=== PATIENT | male | born 1955 | race Two or more races ===

== ENCOUNTER 2023-07-14 17:30 | Inpatient (IN) | payer OTHER ==
[~2023-07-14] VITALS: Ht 188 cm; Wt 113.6 kg
[2023-07-14 17:40] VITALS: PULSE 152; RESP 34; O2SAT 95
[2023-07-14] MEDS ORDERED: SODIUM CHLORIDE 0.9% 1,000 ML IV ONE ×2 (18:15→21:30)
[2023-07-14 18:55] LABS: Basophils # (auto) 0 10 ^3/uL (0-0.2); Basophils % (auto) 0.2 % (0.0-2.0); Eosinophils # (auto) 0 10 ^3/uL (0-0.8); Hematocrit 49.7 % (41.0-53.0); Hemoglobin 15.9 g/dL (13.5-17.5); Lymphocytes # (auto) 0.5 10 ^3/uL (0.4-5.4); Lymphocytes % (auto) 3.2 % (10.0-50.0); Mean Corpuscular Hemoglobin 33.6 pg (28.0-32.0); Mean Corpuscular Volume 104.9 fL (80.0-100.0); Monocytes # (auto) 0.6 10 ^3/uL (0-1.3); Monocytes % (auto) 3.5 % (0.0-12.0); Neutrophils # (auto) 14.8 10 ^3/uL (1.6-8.6); Neutrophils % (auto) 93.1 % (37.0-80.0); Nucleated Red Blood Cells % 0.1 %; Red Blood Cells 4.74 10^6/uL (4.5-5.90); Red Cell Distribution Width 16.8 % (11.8-14.3); White Blood Cell 15.9 10^3/uL (4.4-10.8)
[2023-07-14 19:00] LABS: Alanine Aminotransferase 23 U/L (7-40); Albumin 3.6 g/dL (3.2-4.8); Alkaline Phosphatase 77 U/L (46-116); Anion Gap 16 (5-15); Aspartate Aminotransferase 25 U/L (13-40); BUN/Creatinine Ratio 23.7 (10.0-20.0); Blood Urea Nitrogen 31 mg/dL (9-23); Calcium 8.9 mg/dL (8.7-10.4); Carbon Dioxide 17 mmol/L (20-30); Chloride 107 mmol/L (98-107); Glucose 104 mg/dL (74-106); Magnesium 2.2 mg/dL (1.6-2.6); Potassium 5.1 mmol/L (3.5-5.1); Sodium 140 mmol/L (136-145); Total Protein 6.8 g/dL (5.7-8.2)
[2023-07-14 19:01] LABS: Bilirubin, Total 5.7 mg/dL (0.2-1.0)
[2023-07-14] MEDS ORDERED: FUROSEMIDE 40 MG/4 ML VIAL IV ONE (19:15)
[2023-07-14 19:22] LABS: Lactic Acid w/Reflex 6.4 mmol/L (0.4-2.0)
[2023-07-14 19:38] LABS: INR 1.36 (0.9-1.15); Partial Thromboplastin Time 28.5 SEC (24.5-34.5)
[2023-07-14 19:46] VITALS: PULSE 142; RESP 29; O2SAT 93
[2023-07-14] MEDS ORDERED: VANCOMYCIN 1GM/250ML 250 ML IV ONE (20:15)
[2023-07-14] MEDS ORDERED: cefTRIAXone 1GM/50ML D5W 50 ML IV ONE (20:15)
[2023-07-14] MEDS ORDERED: dilTIAZem 25 MG/5 ML VIAL IV ONE (20:30)
[2023-07-14 21:18] LABS: COVID19 ANTIGEN SOFIA FIA NEGATIVE (NEGATIVE)
[2023-07-14] MEDS ORDERED: DEXTROSE (50%) 50ML SYRG IV PRN (22:00)
[2023-07-14] MEDS ORDERED: FUROSEMIDE 20 MG/2 ML VIAL IV ONE (22:00)
[2023-07-14] MEDS ORDERED: NITROGLYCERIN 0.4 MG SL TAB SL PRN (22:00)
[2023-07-14] MEDS ORDERED: ACETAMINOPHEN 325 MG TAB PO PRN (22:00)
[2023-07-14] MEDS ORDERED: HYDROcodone-ACET 5/325MG TAB PO PRN (22:00)
[2023-07-14] MEDS ORDERED: MORPHINE SULFATE INJ 2 MG/ml SYRG IV PRN (22:00)
[2023-07-14] MEDS ORDERED: ONDANSETRON HCL 4 MG/2 ML VIAL IV PRN (22:00)
[2023-07-14] MEDS ORDERED: DOCUSATE SOD 100 MG CAP PO PRN (22:00)
[2023-07-14 22:45] VITALS: PULSE 123; RESP 20; O2SAT 93
[2023-07-14] MEDS: ACCU-CHEK COMFORT CURVE STRIP VI SCH (22:49)
[2023-07-14] MEDS: LEVALBUTEROL HCL 1.25 MG/3 ML NEB NEB SCH (22:49)
[2023-07-14] MEDS: IPRATROPIUM BROM 0.5 MG/2.5ML INH SOL NEB SCH (22:49)
[2023-07-14 22:55] VITALS: PULSE 104; RESP 19; O2SAT 99
[2023-07-14] MEDS: InsuLIN REG 1unit/0.01ml Soln (100units/ml) SC SCH (22:55)
[2023-07-14 23:41] VITALS: BP 115/70; PULSE 104; RESP 20; O2SAT 93
[2023-07-15] VITALS (36 sets, daily range): BP systolic 85–135; BP diastolic 53–81; PULSE 71–144; RESP 18–31; TEMP 97.9–98.9; O2SAT 83–100
[2023-07-15] MEDS ORDERED: dilTIAZem 25 MG/5 ML VIAL IV ONE ×2 (01:57→02:00)
[2023-07-15] MEDS: LEVALBUTEROL HCL 1.25 MG/3 ML NEB NEB SCH ×6 (02:02→21:50)
[2023-07-15 05:35] LABS: Basophils # (auto) 0 10 ^3/uL (0-0.2); Eosinophils # (auto) 0 10 ^3/uL (0-0.8); Eosinophils % (auto) 0.1 % (0.0-7.0); Hemoglobin 13.9 g/dL (13.5-17.5); Lymphocytes # (auto) 0.8 10 ^3/uL (0.4-5.4); Mean Corpuscular Hgb Conc. 33.2 g/dL (32.0-36.0); Monocytes # (auto) 0.4 10 ^3/uL (0-1.3); Neutrophils # (auto) 9.1 10 ^3/uL (1.6-8.6)
[2023-07-15 05:38] LABS: Basophils % (auto) 0.2 % (0.0-2.0); Hematocrit 41.7 % (41.0-53.0); Lymphocytes % (auto) 7.6 % (10.0-50.0); Mean Corpuscular Volume 102.4 fL (80.0-100.0); Monocytes % (auto) 4.3 % (0.0-12.0); Neutrophils % (auto) 87.8 % (37.0-80.0); Nucleated Red Blood Cells % 0.1 %; Red Blood Cells 4.07 10^6/uL (4.5-5.90); Red Cell Distribution Width 15.6 % (11.8-14.3); White Blood Cell 10.4 10^3/uL (4.4-10.8)
[2023-07-15 06:00] LABS: Alanine Aminotransferase 17 U/L (7-40); Albumin 2.8 g/dL (3.2-4.8); Alkaline Phosphatase 56 U/L (46-116); Anion Gap 11 (5-15); Aspartate Aminotransferase 21 U/L (13-40); BUN/Creatinine Ratio 19.3 (10.0-20.0); Blood Urea Nitrogen 26 mg/dL (9-23); Calcium 8.5 mg/dL (8.5-10.1); Carbon Dioxide 22 mmol/L (20-30); Chloride 108 mmol/L (98-107); Cholesterol 68 mg/dL (< 200); Glucose 161 mg/dL (74-106); HDL Cholesterol 22 mg/dL (40-59); LDL Cholesterol 36 mg/dL (< 100); Potassium 4.5 mmol/L (3.5-5.1); Sodium 141 mmol/L (136-145); Triglycerides 64 mg/dL (< 150)
[2023-07-15 06:01] LABS: Bilirubin, Total 3.6 mg/dL (0.2-1.0); Total Protein 5.5 g/dL (5.7-8.2)
[2023-07-15] MEDS: ACCU-CHEK COMFORT CURVE STRIP VI SCH ×4 (06:31→21:59)
[2023-07-15] MEDS: FUROSEMIDE 20 MG/2 ML VIAL IV SCH ×2 (06:31→17:36)
[2023-07-15] MEDS: InsuLIN REG 1unit/0.01ml Soln (100units/ml) SC SCH ×4 (06:39→22:00)
[2023-07-15] MEDS: IPRATROPIUM BROM 0.5 MG/2.5ML INH SOL NEB SCH ×5 (06:46→21:50)
[2023-07-15] MEDS ORDERED: DIGOXIN (250MCG/ML) 2 ML AMPULE IV ONE ×3 (07:45→14:00)
[2023-07-15] MEDS ORDERED: PHENYLEPHRINE INJ 80 MG in SODIUM CHL 0.9% 242 ML IV SCH (07:45)
[2023-07-15] MEDS ORDERED: cefTRIAXone 1GM/50ML D5W 50 ML IV SCH (09:00)
[2023-07-15] MEDS ORDERED: METOPROLOL TARTRATE 25 MG TAB PO SCH (10:00)
[2023-07-15] MEDS ORDERED: CITALOPRAM HYDROBR 20 MG TAB PO SCH (10:00)
[2023-07-15] MEDS ORDERED: AZITHROMYCIN 500MG/ 250ML 250 ML IV SCH (10:00)
[2023-07-15] MEDS ORDERED: ISOSORBIDE MONONITRATE ER 60 MG TAB PO SCH (10:00)
[2023-07-15] MEDS ORDERED: ENOXAPARIN SOD 40 MG/0.4 ML SYRINGE SC SCH (10:00)
[2023-07-15] MEDS ORDERED: ENOXAPARIN SOD 120 MG/0.8 ML SYRINGE SC SCH (10:00)
[2023-07-15] MEDS ORDERED: SPIRONOLACTONE 25 MG TAB PO SCH (10:00)
[2023-07-15] MEDS ORDERED: ENOXAPARIN SOD 100 MG/1 ML SYRINGE SC SCH (10:00)
[2023-07-15] MEDS ORDERED: PANTOPRAZOLE 40 MG TAB PO SCH (10:00)
[2023-07-15] MEDS ORDERED: ASPirin-EC 81 mg tab PO SCH (10:00)
[2023-07-15] MEDS ORDERED: IOHEXOL 350 MG/ML 100ML IJ ONE (10:46)
[2023-07-15] MEDS ORDERED: ACETYLCYSTEINE ORAL for CIN 20%(200MG/ML) 4ML PO ONE (11:15)
[2023-07-15 12:33] LABS: Urine Bacteria FEW /hpf (None Seen); Urine Blood Negative /uL (Negative); Urine Clarity Clear (Clear); Urine Color Colorless (Yellow); Urine Hyaline Cast FEW /lpf (0 - 2); Urine Protein, UAD Negative (Negative); Urine Specific Gravity 1.013 (1.001-1.035); Urine Urobilinogen Normal (Negative); Urine WBC <1 /hpf (0 - 3)
[2023-07-15 13:59] LABS: Amphetamine Screen, Urine Neg (NEGATIVE)
[2023-07-15 14:00] LABS: Barbiturate Scree,Urine Neg (NEGATIVE); Benzodiazephine Screen, Urine Neg (NEGATIVE); Cannabinoid Screen, Urine Neg (NEGATIVE); Cocaine Screen, Urine Neg (NEGATIVE); Opiate Scree,Urine Neg (NEGATIVE); Phencyclidine Screen, Urine Neg (NEGATIVE)
[2023-07-15] MEDS ORDERED: AZITHROMYCIN 500MG/ 250ML 250 ML IV ONE (16:15)
[2023-07-15] MEDS ORDERED: ACETYLCYSTEINE ORAL for CIN 20%(200MG/ML) 4ML PO SCH (22:00)
[2023-07-15] MEDS ORDERED: ATORVASTATIN 20 MG TAB PO SCH (22:00)
[2023-07-16] MEDS ORDERED: DIGOXIN 0.125 MG TAB PO SCH (10:00)
[2023-07-16] MEDS ORDERED: AZITHROMYCIN 500MG/ 250ML 250 ML IV SCH (10:00)
== END 2023-07-15 22:15 | disposition short-term general hospital (02) | DRG 871 ==
LOC: ER 17:30 → TELE 22:07 → DOU IN ICU 07-15 01:01 → TELE-CENTR 07-15 15:45
PROVIDERS: ADMIT Internal Medicine; ATTEND Internal Medicine
DX: A41.9 Sepsis, unspecified organism (principal); I50.43 Acute on chronic combined systolic (congestive) and diastolic (congestive) heart failure; J96.01 Acute respiratory failure with hypoxia; J44.1 Chronic obstructive pulmonary disease with (acute) exacerbation; N17.9 Acute kidney failure, unspecified; I48.20 Chronic atrial fibrillation, unspecified; I13.0 Hypertensive heart and chronic kidney disease with heart failure and stage 1 through stage 4 chronic kidney disease, or unspecified chronic kidney disease; L03.116 Cellulitis of left lower limb; E66.01 Morbid (severe) obesity due to excess calories; E78.5 Hyperlipidemia, unspecified; Z20.822 Contact with and (suspected) exposure to COVID-19; E11.22 Type 2 diabetes mellitus with diabetic chronic kidney disease; F31.9 Bipolar disorder, unspecified; I48.91 Unspecified atrial fibrillation; M10.9 Gout, unspecified; I25.10 Atherosclerotic heart disease of native coronary artery without angina pectoris; F41.9 Anxiety disorder, unspecified; N18.30 Chronic kidney disease, stage 3 unspecified; R65.20 Severe sepsis without septic shock; Z68.32 Body mass index [BMI] 32.0-32.9, adult; Z79.84 Long term (current) use of oral hypoglycemic drugs; Z72.0 Tobacco use; Z86.73 Personal history of transient ischemic attack (TIA), and cerebral infarction without residual deficits; Z90.5 Acquired absence of kidney; Z91.148 Patient's other noncompliance with medication regimen for other reason
CPT/HCPCS: 36415; 71045; 71275; 80053; 80061; 80307; 81001; 82962; 83036; 83605; 83735; 83880; 84443; 84484; 85025; 85379; 85610; 85730; 87040; 87077; 87081; 87186; 87205; 87426; 93306; 93970; 94640; 96361; 96365; 96368; 96375; 96376; 99291; G0378; J0696; J1815